=== PATIENT | male | born 1960 | race Caucasian/White ===

== ENCOUNTER 2025-07-08 08:25 | Emergency (ER) | payer SELFPAY ==
[2025-07-08] MEDS: Lidocaine 1% with EPINEPHrine 1:100,000 10 ML MDV INFILT ONE (08:51)
[2025-07-08] MEDS: Ketorolac 30 MG/ML SDV IVPUSH ONE (10:06)
[2025-07-08] MEDS: Bacitracin Oint 1 GM U/D Packet TOP ONE (10:28)
== END 2025-07-08 10:52 | disposition home or self-care (01) ==
LOC: MW.ED 08:25
DX: S52.122A Displaced fracture of head of left radius, initial encounter for closed fracture (principal); S01.81XA Laceration without foreign body of other part of head, initial encounter; Z79.899 Other long term (current) drug therapy; W11.XXXA Fall on and from ladder, initial encounter; Y93.89 Activity, other specified
CPT/HCPCS: 12011; 12052; 29105; 70450; 73080; 73090; 96374; 99284; A9270; J1885; J2004; 12014; 29125